=== PATIENT | male | born 1950 | race Caucasian/White ===

== ENCOUNTER 2017-06-16 09:07 | Inpatient (IN) | payer OTHER ==
[2017-06-02 09:15] VITALS: BMI 35.0
--- NOTE | 2017-06-02 09:55 | PAT Medication Instructions ---
Service Date Jun 02, 2017. Current Home Medication List Adalimumab (Humira Pen), 1 DOSE SQ EVERY OTHER RAMONE Allopurinol (Zyloprim), 300 MG PO QAM Amlodipine (Norvasc), 5 MG PO QAM Aspirin (Aspirin Ec), 81 MG PO QAM Folic Acid (Folvite), 1 MG PO QAM Lisinopril (Zestril), 30 MG PO QAM Methotrexate (Methotrexate), 3 TAB PO FRIDAY Metoprolol Succ (Toprol Xl) (Toprol-Xl), 25 MG PO BID Ranitidine (Zantac), 150 MG PO DAILY PRN for STOMACH Medication Instructions For Your Scheduled Surgery - Hold the following medications per your surgeon's instructions: Adalimumab (Humira Pen), 1 DOSE SQ EVERY OTHER FRIDAY Allopurinol (Zyloprim), 300 MG PO QAM Methotrexate (Methotrexate), 3 TAB PO FRIDAY - Hold the following medications the morning of surgery: Folic Acid (Folvite), 1 MG PO QAM Lisinopril (Zestril), 30 MG PO QAM - Take the following medications the morning of surgery with a sip of water: Metoprolol Succ (Toprol Xl) (Toprol-Xl), 25 MG PO BID Ranitidine (Zantac), 150 MG PO DAILY PRN for STOMACH (if needed) Amlodipine (Norvasc), 5 MG PO QAM Aspirin (Aspirin Ec), 81 MG PO QAM - Take the following medications as scheduled the night before surgery: Metoprolol Succ (Toprol Xl) (Toprol-Xl), 25 MG PO BID Ranitidine (Zantac), 150 MG PO DAILY PRN for STOMACH (if needed) OTHERWISE NOTHING TO EAT OR DRINK AFTER MIDNIGHT If you have any questions please call us at [phone] or [phone] or [phone]
[2017-06-02 10:42] LABS: BASO % 0.5 %; BASO ABS # 0.04 K/uL (0-0.2); COMPLETE YES; EOS % 1.7 %; HEMATOCRIT 45.9 % (42-52); IG% 1.3 %; MEAN CELL VOLUME 94.6 fL (80-100); MEAN CORPUSCULAR HEMOGLOBIN 32.4 pg (25-34); MEAN CORPUSCULAR HGB CONC 34.2 g/dl (32-36); MEAN PLATELET VOLUME 10.4 fL (7.4-10.4); MONO % 9.1 %; NEUT % 58.4 %; PLATELET COUNT 164 K/uL (130-400); RED BLOOD COUNT 4.85 M/uL (4.7-6.1); WHITE BLOOD COUNT 7.58 K/uL (4.8-10.8)
[2017-06-02 10:43] LABS: URINE APPEARANCE CLEAR (CLEAR); URINE BILIRUBIN NEG (NEG); URINE COLOR YELLOW; URINE NITRITE NEG (NEG); URINE SPECIFIC GRAVITY 1.025 (1.000-1.030); UROBILINOGEN NEG (NEG)
--- NOTE | 2017-06-02 10:44 | DIAGNOSTIC IMAGING REPORT ---
TWO VIEW CHEST CLINICAL HISTORY: Preoperative examination. FINDINGS: PA and lateral chest radiographs are obtained. No prior studies are available for comparison at the time of dictation. The heart is top normal for projection. There is mild atherosclerotic calcification of the thoracic aorta. The lungs and pleural spaces are clear. There is no pneumothorax. The bony thorax appears intact. IMPRESSION: No active disease in the chest. Electronically signed by: Klaus Shine M.D. 06/02/2017 10:43 AM Dictated Date/Time: 06/02/2017 10:40 AM
[2017-06-02 10:45] LABS: MANUAL MICROSCOPIC REQUIRED? NO; REVIEW REQ? NO
[2017-06-02 10:53] LABS: INR 0.9 (0.9-1.1); PARTIAL THROMBOPLASTIN RATIO 1.2
[2017-06-02 11:35] LABS: CALCIUM 9.4 mg/dl (8.5-10.1); CREATININE 1.3 mg/dl (0.60-1.40); POTASSIUM 4.7 mmol/L (3.5-5.1)
[2017-06-02 11:38] LABS: ALB/GLOB RATIO 1.2 (0.9-2)
--- NOTE | 2017-06-15 11:55 | History and Physical ---
History & Physical Date Jun 15, 2017. Chief Complaint LEFT KNEE PAIN History of Present Illness The patient is a 67 year old male with complaints of left knee pain for years. Pt finding himself on couch all the time secondary to pain. Has had injections and nsaids and pt with no help at all. Hes ready for left TkA. Additional History Hepatic Disease: No Endocrine Disorder: No Kidney Disease: No Hypertension: Yes Heart Disease: No Bleeding Tendencies: No Infectious Diseases: No Allergies Coded Allergies: Amlodipine (Verified Allergy, Mild, SWELLING OF LEGS AND ANKLE AND TOLERATES A SMALL DOSE, 06/02/17) Home Medications Scheduled Adalimumab (Humira Pen), 1 DOSE SQ EVERY OTHER FRIDAY Allopurinol (Zyloprim), 300 MG PO QAM Amlodipine (Norvasc), 5 MG PO QAM Aspirin (Aspirin Ec), 81 MG PO QAM Folic Acid (Folvite), 1 MG PO QAM Lisinopril (Zestril), 30 MG PO QAM Methotrexate (Methotrexate), 3 TAB PO FRIDAY Metoprolol Succ (Toprol Xl) (Toprol-Xl), 25 MG PO BID Scheduled PRN Ranitidine (Zantac), 150 MG PO DAILY PRN for STOMACH Physical Examination Skin: warm/dry, no rash Eyes: normal inspection, EOMI, sclerae normal ENT: normal ENT inspection, pharynx normal Head: normocephalic, atraumatic Neck: supple, no adenopathy, trachea midline Respiratory/Chest: lungs clear, normal breath sounds, no respiratory distress Cardiovascular: regular rate, rhythm, no edema, no murmur Abdomen / GI: normal bowel sounds, non tender Back: normal inspection Extremities: normal inspection, normal range of motion, + pertinent finding ( pain with rom left knee. pain along medial joint line. ) Neurologic/Psych: no motor/sensory deficits, alert, normal reflexes, oriented x 3 Diagnosis DJD LEFT KNEE Plan of Treatment PLAN IS FOR ADMISSION FOR LEFT TKA, HOME DC AND ASA FOR DVT PROPHYLAXIS.
[2017-06-16] VITALS (10 sets, daily range): BP systolic 115–150; BP diastolic 61–86; PULSE 55–74; TEMP 36.4–36.9; O2SAT 92–97; Ht 175.3 cm; Wt 109.0 kg
[~2017-06-16] VITALS: Ht 175.3 cm; Wt 109.0 kg
[2017-06-16] MEDS: TRANEXAMIC ACID INJ 1,000 MG in SODIUM CHLORIDE 0.9% 100ML 100 ML IV SCH ×2 (06:00→06:30)
[~2017-06-16 09:07] MED LIST: ACETAMINOPHEN 500 MG TAB PO SCH; ADAL40KI SQ; ALLO300T2 PO; AMLO-110 PO; ASPI81TA28 PO; BUPIVACAINE 0.25% 30 ML VIAL ONE; BUPIVACAINE 0.5 % 5 MG/1 ML PF 10ML VIAL ONE; CEFAZOLIN 2000MG IV PUSH 10 ML IV SCH; CeleBREX 200 MG CAP PO SCH; DEXAMETHASONE 4 MG TAB PO SCH; FAMOTIDINE 20 MG TAB PO SCH; FOLI1TAB7 PO; LACTATED RINGER'S 1000ML 1,000 ML IV SCH; LACTATED RINGER'S 1000ML 500 ML IV ONE; LACTATED RINGER'S 1000ML IV SCH; LISI1TAB3 PO; METH2.5T PO; METO25TA3 PO; METOCLOPRAMIDE HCL 10 MG TAB PO SCH; ROPIVACAINE 5MG/ML 30 ML 150 MG, BUPIVACAINE/EPINEPHR 0.5% MPF 30 ML, KETOROLAC TROMETH... INFIL SCH; ZNTT/150 PO
[2017-06-16] MEDS ORDERED: MIDAZOLAM HCL 1 MG/ML 2ML VIAL ONE ×2 (10:52)
[2017-06-16] MEDS ORDERED: FENTANYL CITRATE INJ 50 MCG/1 ML 2 ML VIAL ONE (10:53)
[2017-06-16] MEDS ORDERED: LIDOCAINE HCL 2% 2 ML VIAL (20MG/ML) ONE (10:54)
[2017-06-16] MEDS ORDERED: PROPOFOL IV EMULSION 10 MG/ML 20 ML VIAL IV ONE (10:58)
[2017-06-16] MEDS ORDERED: ONDANSETRON INJ 2 MG/ML 2 ML VIAL ONE (10:58)
--- NOTE | 2017-06-16 11:13 | History & Physical Bridge Note ---
H&P Re-Evaluation Bridge Note: I have examined the patient, reviewed the History & Physical and in the interval since the performance of the History & Physical I have noted the following changes of clinical significance: No changes noted
[2017-06-16] MEDS ORDERED: POVIDONE-IODINE OP SOLN 30 ML BTL ONE (11:32)
[2017-06-16] MEDS ORDERED: ORTHO JOINT ANESTHETIC ONE (11:32)
[2017-06-16] MEDS ORDERED: BACITRACIN 50000 UNIT VIAL ONE (11:33)
[2017-06-16] MEDS ORDERED: ATROPINE SULFATE 0.1 MG/ML 5ML SYR IV PRN (12:15)
[2017-06-16] MEDS ORDERED: PHENYLEPHRINE 100MCG/ML 5ML SYR IV PRN (12:15)
[2017-06-16] MEDS ORDERED: KETOROLAC TROMETHAMINE 15 MG/ML VIAL IV. PRN (12:15)
[2017-06-16] MEDS ORDERED: HYDROmorphone INJ 2 MG/ML SYR/VIAL IV PRN (12:15)
[2017-06-16] MEDS ORDERED: EpHEDrine SULFATE INJ 50 MG/ML AMP IV PRN (12:15)
[2017-06-16] MEDS ORDERED: ONDANSETRON INJ 2 MG/ML 2 ML VIAL IV PRN ×2 (12:15→13:15)
[2017-06-16] MEDS ORDERED: MAGNESIUM HYDROXIDE SUSP 30 ML UDC PO PRN (13:15)
[2017-06-16] MEDS ORDERED: BISACODYL 10 MG SUPP PR PRN (13:15)
[2017-06-16] MEDS ORDERED: ALUMINUM/MAGNESIUM/SIMETH (MAALOX MAX) 30 ML UDC PO PRN (13:15)
[2017-06-16] MEDS ORDERED: ZOLPIDEM TARTRATE 5 MG TAB PO PRN (13:15)
--- NOTE | 2017-06-16 13:25 | [facility] Operative Report ---
Operative Report Operative Date Jun 16, 2017. Pre-Operative Diagnosis Left knee degenerative joint disease Post-Operative Diagnosis Left knee degenerative joint disease Procedure(s) Performed Left total knee arthroplasty, cemented Surgeon Dr. Ramirez [employer] Team Leader Surgeon(s) Danny Ojeda PA-C and Steve Norman DO Estimated Blood Loss 20 mL Findings as above Specimens A: Left knee bone and tissue Complication(s) None Disposition Recovery Room / PACU Description of Procedure IMPLANTS USED: [employer] journey 2 knee size 6 cemented femoral component, a size 6 tibial component, a size 11 PS insert and a size 38 all polyethylene patella INDICATIONS: pleasant male who has unfortunately failed all forms of conservative measures. Therefore, they have decided to undergo elective surgical intervention. All risks and benefits of the surgery were discussed with the patient and the family in entirety. PROCEDURE: The patient was brought to the operating room and properly identified by myself, anesthesia, and staff. Patient was given a spinal anesthesia and placed on the operating table in the supine position. Tourniquets were applied to the left upper thigh. The leg was then prepped and draped in usual sterile fashion. We made a standard midline approach over the patella and dissected down through the subcutaneous tissue to identify the capsule and performed a medial capsulotomy with the patella everted and the knee flexed.The patient matched implant was then put onto the femur. The femur measured to be a size 6. This was then put into place. We made the appropriate cuts and then placed a retractor behind the proximal tibia to retract anteriorly. We then placed the patient matched knee implant on the tibia. It measured to be a size #6. A size #6 guide was then put in place. We used the tibial punch then put the trial components into place. We had very good range of motion, excellent stability, and excellent patella tracking. We removed the trial components and irrigated the wound. We impacted the components in place using antibiotic cement. All excess cement was removed. We then irrigated the wound once more. We closed the capsule with 0 PDS suture , deep dermis and 2-0 Vicryl, and finally the skin with andrei. A sterile dressing was applied. The patient was taken to the recovery room in stable condition. Due to the complex nature of the procedure, the entire surgery was performed with the operational assistance of Danny ANDERSON)]. The assistant superintendent for curriculum was under direct supervision, was involved in the actual performance of all aspects of the surgical procedure including hemostasis, tissue retraction and incision, instrument management, patient positioning, and wound closure. I attest to the content of the Intraoperative Record and any orders documented therein. Any exceptions are noted below.
--- NOTE | 2017-06-16 14:25 | Anesthesiology Progress Note ---
Anesthesia Post Op Note Date & Time Jun 16, 2017 at 14:25 Vital Signs Pain Intensity: 0 Vital Signs Past 12 Hours Date Time Temp Pulse Resp B/P (MAP) Pulse Ox O2 Delivery O2 Flow Rate FiO2 06/16/17 14:11 105/64 06/16/17 14:08 59 17 06/16/17 14:08 60 17 93 06/16/17 14:06 95/56 06/16/17 14:03 66 16 94 06/16/17 14:03 67 16 06/16/17 14:01 96/60 06/16/17 13:58 67 13 06/16/17 13:58 67 13 91 06/16/17 13:56 108/63 06/16/17 13:54 95/57 06/16/17 13:53 36.4 93 20 95/57 93 Nasal Cannula 2 06/16/17 13:53 65 25 93 06/16/17 13:53 66 25 06/16/17 09:46 36.9 55 18 150/86 97 Room Air Notes Mental Status: alert / awake / arousable, participated in evaluation Pt Amnestic to Procedure: Yes Nausea / Vomiting: adequately controlled Pain: adequately controlled Airway Patency, RR, SpO2: stable & adequate BP & HR: stable & adequate Hydration State: stable & adequate Neuraxial Anesthesia: was administered, sensory block is resolving Anesthetic Complications: no major complications apparent
[2017-06-16] MEDS: SODIUM CHLORIDE 0.9% 1000ML 1,000 ML IV SCH (16:18)
[2017-06-16] MEDS: OXYCODONE HCL IR 5 MG TAB (IMMEDIATE RELEASE) PO PRN ×2 (18:27→23:40)
[2017-06-16] MEDS ORDERED: TRANEXAMIC ACID INJ 1,000 MG in SODIUM CHLORIDE 0.9% 100ML 100 ML IV SCH (20:00)
[2017-06-16] MEDS: CEFAZOLIN IV 2,000 MG in SYRINGE 0 ML IV SCH (21:12)
[2017-06-16] MEDS: ACETAMINOPHEN 500 MG TAB PO SCH (21:14)
[2017-06-16] MEDS: DOCUSATE SODIUM 100 MG CAP PO SCH (21:14)
[2017-06-16] MEDS: ASPIRIN 81 MG ECTAB PO SCH (21:14)
[2017-06-16] MEDS: METOPROLOL SUCC 25MG EXT REL TAB PO SCH (21:17)
[2017-06-17] MEDS: SODIUM CHLORIDE 0.9% 1000ML 1,000 ML IV SCH ×2 (01:17→10:48)
[2017-06-17 03:10] VITALS: BP 128/54; PULSE 71; TEMP 36.5; O2SAT 95
[2017-06-17] MEDS: CEFAZOLIN IV 2,000 MG in SYRINGE 0 ML IV SCH ×2 (03:47→11:53)
[2017-06-17] MEDS: ACETAMINOPHEN 500 MG TAB PO SCH ×2 (05:41→13:54)
[2017-06-17] MEDS: OXYCODONE HCL IR 5 MG TAB (IMMEDIATE RELEASE) PO PRN ×3 (07:08→15:10)
--- NOTE | 2017-06-17 07:23 | Anesthesiology Progress Note ---
Anesthesia Post Op Note Date & Time Jun 17, 2017 at 07:22 Vital Signs Pain Intensity: 5.0 Vital Signs Past 12 Hours Date Time Temp Pulse Resp B/P (MAP) Pulse Ox O2 Delivery O2 Flow Rate FiO2 06/17/17 03:10 36.5 71 16 128/54 (78) 95 Room Air 06/16/17 23:43 Room Air 06/16/17 23:05 36.4 74 16 147/65 (92) 92 Room Air 06/16/17 19:57 92 Room Air Notes Mental Status: alert / awake / arousable, participated in evaluation Pt Amnestic to Procedure: Yes Nausea / Vomiting: adequately controlled Pain: adequately controlled Airway Patency, RR, SpO2: stable & adequate BP & HR: stable & adequate Hydration State: stable & adequate Neuraxial Anesthesia: was administered, sensory block resolved Anesthetic Complications: no major complications apparent
[2017-06-17 07:25] VITALS: BP 133/75; PULSE 57; TEMP 36.5; O2SAT 98
[2017-06-17] MEDS ORDERED: DEXAMETHASONE INJ 10 MG in SYRINGE 0 ML IV ONE (07:30)
[2017-06-17 07:39] LABS: MEAN CELL VOLUME 93.4 fL (80-100); MEAN CORPUSCULAR HEMOGLOBIN 32.7 pg (25-34); MEAN PLATELET VOLUME 10.5 fL (7.4-10.4); PLATELET COUNT 158 K/uL (130-400); RED BLOOD COUNT 4.07 M/uL (4.7-6.1); WHITE BLOOD COUNT 16.65 K/uL (4.8-10.8)
[2017-06-17 07:50] VITALS: BP_SYST 133; BP_SYST 147; BP_DIAS 75; BP_DIAS 79; PULSE 57; PULSE 62; TEMP 36.5; O2SAT 98
[2017-06-17] MEDS: DOCUSATE SODIUM 100 MG CAP PO SCH (07:58)
[2017-06-17] MEDS: ASPIRIN 81 MG ECTAB PO SCH (07:59)
[2017-06-17] MEDS: METOPROLOL SUCC 25MG EXT REL TAB PO SCH (08:15)
--- NOTE | 2017-06-17 08:38 | DISCHARGE SUMMARY ---
DISCHARGE DIAGNOSIS: Degenerative joint disease, left knee. SECONDARY DIAGNOSIS: None. CONSULTS: None. PROCEDURE: The patient underwent a left total knee arthroplasty with Dr. Ramirez on 06/16/2017. BRIEF HISTORY: Please see previously dictated history and physical. HOSPITAL SUMMARY: The patient was admitted on the above day for the above procedure. Procedure went without complication. Postop day 1, the patient was feeling well without complaints. He denied chest pain or shortness of breath. Vital signs were stable. He was afebrile. Dressing was clean, dry and intact. He was neurovascularly intact. Calves were soft and nontender. The patient did not have a Hemovac. Hemoglobin was 13.3. The patient began physical therapy per protocol. He was discharged to home later that day in stable condition. For further review please see the chart. Lab, x-ray data and discharge instructions as per chart.
[2017-06-17] MEDS ORDERED: CLB/200 PO (08:42)
[2017-06-17] MEDS ORDERED: ASPI81TA28 PO (08:42)
[2017-06-17] MEDS ORDERED: ONDA8TAB6 PO (08:42)
[2017-06-17] MEDS ORDERED: RXC5 PO (08:42)
[2017-06-17] MEDS ORDERED: ACET-24 PO (08:42)
--- NOTE | 2017-06-17 08:43 | Discharge Instructions ---
Discharge Instructions Date of Service Jun 17, 2017. Admission Reason for Admission: Left Knee Osteoarthritis Discharge Discharge Diagnosis / Problem: SP LEFT TKA Discharge Goals Goal(s): Decrease discomfort, Improve function, Increase independence Activity Recommendations Activity Limitations: per Instructions/Follow-up section . Instructions / Follow-Up Instructions / Follow-Up ACTIVITY RECOMMENDATIONS: SELF CARE INSTRUCTIONS AFTER TOTAL KNEE REPLACEMENT A. You may need to continue a physical therapy program after discharge from the hospital. There are several options available to you. Your doctor will assist you in selecting the best one for you. 1. An out-patient facility 2 to 3 times a week for therapy or home therapy. 2. Continue working on all exercises taught to you in the hospital. Your goals should be to increase bending of your knee to 90 degrees and beyond and to fully straighten your knee. B. You may progress at your own pace from walking with a walker or crutches to a cane; then to no assistive devices. C. Make walking a part of your daily routine. Be up as much as comfortable with rest periods throughout the day. Rest with leg elevation is very important. Use the ice wrap frequently for the first 3-4 weeks. D. There are no restrictions on activities. You may ride in a car, shop, participate in cardiac cath rn and all social activities. E. Wear the long elastic stockings (SHAISTA hose) 20 hours a day for 2 weeks after surgery. They can be removed several times a day for laundering and for a bath. F. You may shower, no tub baths until cleared by your doctor. SPECIAL CARE INSTRUCTIONS: VERY IMPORTANT TO READ AND REVIEW A. There are a few signs you need to watch for after you are home. Call [facility] if you notice any of the followin. Increased severe knee pain. Some pain is expected especially when you exercise. 2. Increased swelling in your leg or knee; pain or swelling of the calf muscle in either lower leg. 3. Any fluid drainage from the incision. 4. Shortness of breath or chest pain. B. Please call [facility] at if you have any concerns or questions about your operation or recovery. The doctor or his nurse will return your call promptly. C. You must take antibiotics before dental work, bladder, bowel or other surgery. Your doctor will provide you with a permanent care to carry describing this precaution. IMPORTANT: * REMEMBER TO TAKE ASPIRIN, 81 MG, TWICE DAILY FOR 4 WEEKS UNLESS OTHERWISE DIRECTED. THIS IS YOUR BLOOD THINNER. * HIGH RISK PATIENTS MAY BE PRESCRIBED A STRONGER BLOOD THINNER. THIS WILL BE PROVIDED AT DISCHARGE. * CALL IF INCREASED PAIN, REDNESS, DRAINAGE OR FEVER GREATER THAT 101. * WEAR SHAISTA HOSE 20 HOURS PER DAY FOR 2 WEEKS. * YOU MAY HAVE A LARGE BAND-AID LIKE DRESSING (SILVERON). THIS WILL REMAIN ON YOUR INCISION FOR 7 DAYS, THEN CAN BE REMOVED. IF INCISION IS LEAKING THROUGH DRESSING, CALL THE OFFICE . HOLD METHOTREXATE AND HUMIRA FOR 2 WEEKS AFTER SURGERY. BE SURE TO DISCUSS RESUMING AT 2 WEEK POST OP APPT FOLLOW UP VISIT: If appointment is not already scheduled: Please call [facility] to make a follow-up appointment for 2 weeks after your surgery at . Current Hospital Diet Patient's current hospital diet: Regular Diet Discharge Diet Recommended Diet: Regular Diet Procedures Procedures Performed: Left total knee arthroplasty, cemented Pending Studies Studies pending at discharge: no Medical Emergencies . Who to Call and When: Medical Emergencies: If at any time you feel your situation is an emergency, please call [phone] immediately. . Non-Emergent Contact Non-Emergency issues call your: Surgeon . "Provider Documentation" section prepared by Pam Tsang. . VTE Core Measure Inpt VTE Proph given/why not?: Other Anticoagulation, T.E.D. Stockings, SCD's
[2017-06-17] MEDS ORDERED: AMLODIPINE BESYLATE 5 MG TAB PO SCH (09:00)
[2017-06-17] MEDS ORDERED: LISINOPRIL 20 MG TAB PO SCH (09:00)
[2017-06-17] MEDS ORDERED: ALLOPURINOL 300 MG TAB PO SCH (09:00)
[2017-06-17 10:39] VITALS: BP 151/75; PULSE 76; O2SAT 95
[2017-06-17 11:06] VITALS: BP 121/68; PULSE 68; TEMP 36.4; O2SAT 98
== END 2017-06-17 15:27 | disposition home health service (06) | DRG 470 ==
LOC: C.ACU 09:07 → C.3E 11:14 → ENRESERV 14:19
PROVIDERS: ADMIT Orthopaedic Surgery; ATTEND Orthopaedic Surgery
PROC: 0SRD0J9 Replacement of Left Knee Joint with Synthetic Substitute, Cemented, Open Approach (ICD-10-PCS; principal; 2017-06-16 11:30)
DX: M17.12 Unilateral primary osteoarthritis, left knee (principal); I10 Essential (primary) hypertension